=== PATIENT | male | born 1965 | race Caucasian/White ===

== ENCOUNTER 2016-11-26 10:33 | Emergency (ER) | payer OTHER ==
[~2016-11-26] VITALS: Wt 90.0 kg
[2016-11-26] MEDS ORDERED: DICLOFENAC SODIUM 37.5 MG/ML VIAL IV STA (11:15)
[2016-11-26] MEDS ORDERED: ONDANSETRON 4 MG INJ IV STA (11:15)
[2016-11-26 11:43] LABS: BASOPHIL # 0.1 10^3/ul (0.0-0.1); BASOPHILS % 2.7 % (0.0-2.0); EOSINOPHILS % 0.9 % (0.0-7.0); HEMATOCRIT 46.3 % (42.0-52.0); HEMOGLOBIN 15.8 g/dl (14.0-18.0); LYMPHOCYTES % 41.5 % (15.0-51.0); MEAN CORPUSCULAR HEMOGLOBIN 28.1 pg (29.0-33.0); MEAN CORPUSCULAR HGB CONC 34.1 g/dl (32.0-37.0); MEAN CORPUSCULAR VOLUME 82.4 fl (82.0-101.0); MEAN PLATELET VOLUME 10.5 fl (7.4-10.4); MONOCYTE # 0.4 10^3/ul (0.3-0.9); MONOCYTES % 7.9 % (0.0-11.0); NEUTROPHIL # 2.2 10^3/ul (1.6-7.5); PLATELET COUNT 210 10^3/UL (140-440); RED BLOOD COUNT 5.62 10^6/ul (4.70-6.10); RED CELL DISTRIBUTION WIDTH 12.9 % (11.5-14.5); UNCORRECTED WBC 4.7 10^3/ul (4.8-10.8); WHITE BLOOD COUNT 4.7 10^3/ul (4.8-10.8)
[2016-11-26 11:45] LABS: ADD UMIC YES; CONDITION 1; URINE BILIRUBIN (Dip) NEGATIVE (NEGATIVE); URINE BLOOD (Dip) TRACE (NEGATIVE); URINE COLOR LT. YELLOW (YELLOW); URINE GLUCOSE (Dip) NEGATIVE (NEGATIVE); URINE KETONES (Dip) NEGATIVE (NEGATIVE); URINE LEUKOCYTE ESTERASE (Dip) NEGATIVE (NEGATIVE); URINE NITRITE (Dip) NEGATIVE (NEGATIVE); URINE TOTAL PROTEIN (Dip) NEGATIVE (NEGATIVE); URINE UROBILINOGEN (Dip) 0.2 E.U./dL (0.1-1.0)
[2016-11-26 11:56] LABS: BACTERIA,URINE RARE; URINE RBCS 0-2 /HPF (0)
[2016-11-26 11:57] LABS: POTASSIUM 4.1 mmol/L (3.5-5.1)
[2016-11-26 11:59] LABS: ALBUMIN/GLOBULIN RATIO 1.21; CREATININE 1.12 mg/dl (0.61-1.24); TOTAL PROTEIN 9.1 g/dl (6.1-8.1)
[2016-11-26 12:00] LABS: CALCIUM 9.6 mg/dl (8.4-10.2)
--- NOTE | 2016-11-26 12:25 | RADRPT ---
PROCEDURE: CT Abdomen and Pelvis without contrast. CLINICAL INDICATION: Abdominal and pelvic pain. Right lower quadrant pain for 3 days. TECHNIQUE: CT scan of the abdomen and pelvis without contrast was performed. Coronal and sagittal reformatted images were obtained from the axial source images. Images were reviewed on a high-resolu [employer] PACS workstation. Total exam DLP is 1029.39 mGy-cm. CTDIvol is 17.58 mGy. One or more of the following dose reduction techniques were used: Automated exposure control, adjustment of the mA and/ or kV according to patient size, use of iterative reconstruction technique. COMPARISON: None. FINDINGS: The lung bases are normal. There is no pleural effusion. The liver is normal in size and diffusely decreased in attenuation. There is no focal hepatic lesio n. The gallbladder and bile ducts are normal. The spleen is normal in size. There is no focal splenic lesion. Both adrenals are normal with no enlargement or mass. The pancreas is unremarkable with no mass or evidence of pancreatitis. There is no renal mass or hydronephrosis. There is no renal calculus or ureteral calculus. The abdominal aorta is not dilated. There is calcification in the aorta consistent with atheroscler osis. There is no retroperitoneal lymphadenopathy or mass. There is no pelvic lymphadenopathy or mass. The bladder and distal ureters are normal. The periappendiceal region is unremarkable with no evidence of appendicitis. The appendix is well se en and appears normal. There is diverticulosis of the descending colon and sigmoid colon. There is no evidence of divertic ulitis. The bowel and mesentery are otherwise normal. There is no free fluid or free gas. There are mild degenerative changes of the spine. Bilateral pars defects are present at L4. There i s grade 1 anterolisthesis at L4-5. Alignment of the spine is otherwise normal. There is no other f racture or lytic lesion. IMPRESSION: 1. Fatty metamorphosis of the liver. 2. Atherosclerosis. 3. Normal appendix. 4. No urinary tract calculus or hydronephrosis. 5. Diverticulosis of the descending colon and sigmoid colon. No evidence of diverticulitis. 6. Mild degenerative changes of the spine. 7. Bilateral pars defects at L4. 8. Grade 1 anterolisthesis at L4-5. 9. Otherwise unremarkable study. RPTAT: QQ .Rafy Liu MD, MD Date Time Electronically viewed and signed by .Rafy Liu MD, on 11/26/2016 12:25 .R/
[2016-11-26] MEDS ORDERED: IBUP-1542 PO (12:29)
[2016-11-26] MEDS ORDERED: HYDR-902 PO (12:29)
[2016-11-26 12:55] VITALS: BP 141/102; PULSE 78; RESP 18; TEMP 97.7
--- NOTE | 2016-11-26 13:19 | ERD ---
ER Documentation Chief Complaint Date/Time DATE: 11/26/16 TIME: 13:17 Chief Complaint RLQ ABD PAIN, ONSET 2 DAYS, NO N/V/D, NO FEVER HPI Patient is a 51-year-old male with no medical problems who presents with abdominal pain. He has abdominal pain in the right lower quadrant for the past 2 days. The patient feels better today. The pain is been constant and worse with movement. The patient denies fevers. There is no vomiting or diarrhea. The patient has had no treatment as of yet. The patient does not currently have a primary doctor. Upon review of old medical records this is the patient' s first visit to the ER. ROS All systems reviewed and are negative except as per history of present illness. Medications Home Meds Active Scripts Hydrocodone/Acetaminophen (Loving 10-325 Tablet) 1 Each Tablet, 1 TAB PO Q6H Y for PAIN, #7 TAB Prov:PRADEEP PITT MD 11/26/16 Ibuprofen* (Motrin*) 600 Mg Tab, 600 MG PO Q6H Y for PAIN AND OR ELEVATED TEMP, #30 TAB Prov:PRADEEP PITT MD 11/26/16 Allergies Allergies: Coded Allergies: No Known Allergy (Unverified , 11/26/16) PMhx/Soc Medical and Surgical Hx: pt denies Medical Hx, pt denies Surgical Hx Hx Alcohol Use: No Hx Substance Use: No Hx Tobacco Use: No Smoking Status: Never smoker FmHx Family History: No diabetes Physical Exam Vitals Vital Signs Date Time Temp Pulse Resp B/P Pulse Ox O2 Delivery O2 Flow Rate FiO2 11/26/16 12:55 97.7 78 18 141/102 97 Room Air 11/26/16 10:46 97.7 94 18 171/107 97 Physical Exam Const: No acute distress Head: Atraumatic Eyes: Normal Conjunctiva ENT: Normal External Ears, Nose and Mouth. Neck: Full range of motion..~ No meningismus. Resp: Clear to auscultation bilaterally Cardio: Regular rate and rhythm, no murmurs Abd: Mild right lower quadrant tenderness to palpation without rebound or guarding Skin: No petechiae or rashes Back: No midline or flank tenderness Ext: No cyanosis, or edema Neur: Awake and alert Psych: Normal Mood and Affect Result Diagram: 11/26/16 1129 11/26/16 1129 Results 24 hrs Laboratory Tests Test 11/26/16 11:29 Alanine Aminotransferase (ALT/SGPT) 69IU/L Albumin 5.0g/dl Albumin/Globulin Ratio 1.21 Alkaline Phosphatase 93IU/L Anion Gap 22 Aspartate Amino Transf (AST/SGOT) 37IU/L Basophils # 0.110^3/ul Basophils % 2.7% Blood Morphology Comment Blood Urea Nitrogen 15mg/dl Calcium Level 9.6mg/dl Carbon Dioxide Level 27mmol/L Chloride Level 101mmol/L Creatinine 1.12mg/dl Direct Bilirubin 0.00mg/dl Eosinophils # 0.010^3/ul Eosinophils % 0.9% Globulin 4.10g/dl Glucose Level 137mg/dl Hematocrit 46.3% Hemoglobin 15.8g/dl Indirect Bilirubin 1.0mg/dl Lipase 115U/L Lymphocytes # 2.010^3/ul Lymphocytes % 41.5% Mean Corpuscular Hemoglobin 28.1pg Mean Corpuscular Hemoglobin Concent 34.1g/dl Mean Corpuscular Volume 82.4fl Mean Platelet Volume 10.5fl Monocytes # 0.410^3/ul Monocytes % 7.9% Neutrophils # 2.210^3/ul Neutrophils % 47.0% Nucleated Red Blood Cells # 0.010^3/ul Nucleated Red Blood Cells % 0.0/100WBC Platelet Count 41894^3/UL Potassium Level 4.1mmol/L Red Blood Count 5.6210^6/ul Red Cell Distribution Width 12.9% Sodium Level 146mmol/L Total Bilirubin 1.0mg/dl Total Protein 9.1g/dl Urine Bacteria RARE Urine Bilirubin NEGATIVE Urine Clarity CLEAR Urine Color LT. YELLOW Urine Epithelial Cells RARE Urine Glucose NEGATIVE% Urine Hemoglobin TRACE Urine Ketones NEGATIVE Urine Leukocyte Esterase NEGATIVE Urine Microscopic RBC 0-2/HPF Urine Microscopic WBC 0-2/HPF Urine Nitrite NEGATIVE Urine Specific Hassell 1.025 Urine Total Protein NEGATIVE Urine Urobilinogen 0.2 E.U./dL Urine pH 5.5 White Blood Count 4.710^3/ul Current Medications Medications (Trade) Dose Ordered Sig/Gracie Route PRN Reason Start Time Stop Time Status Last Admin Dose Admin Ondansetron HCl (Zofran Inj) 4 mg ONCE STAT IV 11/26/16 11:15 11/26/16 11:17 DC 11/26/16 11:28 Diclofenac Sodium (Dyloject) 37.5 mg ONCE STAT IV 11/26/16 11:15 11/26/16 11:17 DC 11/26/16 11:28 Procedures/MDM CT negative per radiology. Patient is a 51-year-old male presents with right lower quadrant abdominal pain. Laboratory studies were basically normal other than mild leukopenia and mild hyper natremia. CT scan was negative. LFTs and lipase were normal and I doubt cholecystitis, pancreatitis, appendicitis, or bowel obstruction. The patient will need to follow-up with a primary doctor tomorrow morning and I provided information for the local clinics. The patient can return for any worsening symptoms. The patient will be given a prescription for ibuprofen and Loving. Departure Diagnosis: Primary Impression: Abdominal pain Abdominal location: right lower quadrant Qualified Code: R10.31 - Right lower quadrant abdominal pain Condition: Fair Patient Instructions: Abdominal Pain Ref[facility]: [facility] Usted se poon hecho un examen mdico de control que le indica que no est en ace condicin que requiera tratamiento urgente en el Departamento de Emergencia. Un estudio ms profundo y el tratamiento de randolph condicin pueden esperar sin ningn riesgo hasta que usted sea atendida/o en el consultorio de randolph mdico o ace cl bacilio. Es responsabilidad suya arreglar ace laura para el seguimiento del lilo. MANEJO DE CONDICIONES NO URGENTES EN EL FUTURO 1) Si usted tiene un mdico de atencin primaria: Usted debera llamar a randolph mdico de atencin primaria antes de venir al departamento de emergencia. Despus de las horas de consultorio, randolph doctor o randolph asociado/a est disponible por telfono. El mdico o enfermero de lizeth en el servicio telefnico puede asesorarle por dali medio para atender el problema, o lilo contrario se puede programar ace laura. 2) Si usted no tiene un mdico de atencin primaria: Llame al mdico o clnica de referencia que aparece abajo catrachito las horas de consultorio para hacer ace laura para que le vean. CLINICAS: [facility] [phone] [facility] [phone] [facility] [phone] [place] [phone] [place] [address] [phone] [facility]. [phone] [address] Additional Instructions: Visite a randolph ico maana para un EXAMEN.Regrese a estas instalaciones si no se mejora lorenzo esperbamos o lorenzo le dijimos. PRADEEP PITT MD Nov 26, 2016 13:19
== END 2016-11-26 12:56 | disposition home or self-care (01) ==
LOC: E/R 10:33
DX: R10.31 Right lower quadrant pain (principal)
CPT/HCPCS: 36415; 74176; 80053; 81001; 83690; 85025; 96374; 96375; J2405; Z7502; Z7610; 81003

== ENCOUNTER 2017-10-06 | Emergency (ER) | payer OTHER ==
[~2017-10-06] VITALS: Ht 170.2 cm; Wt 94.0 kg
[~2017-10-06] MED LIST: HYDR-902 PO; IBUP-1542 PO
[2017-10-06 00:11] VITALS: Ht 170.2 cm; Wt 94.0 kg
[2017-10-06] MEDS ORDERED: HYDROCODONE/APAP (10/325) TAB PO ONE (01:30)
--- NOTE | 2017-10-06 01:30 | ERD ---
ER Documentation Chief Complaint Chief Complaint left foot pain/swelling x 2 weeks. denies injury HPI 52-year-old male presents emergency department for left foot/swelling/pain for 2 weeks. Denies headache, dizziness, blurry vision, neck pain, shoulder pain, chest pain , back pain, difficulty breathing when lying flat, cough, loss of appetite, abdominal pain, nausea, vomiting, constipation, diarrhea, loss of bowel bladder control, changes in bowel and bladder habits, trauma, injury, falls, numbness or tingling sensation, fever, chills. No known drug allergies. No past medical history. No surgeries. Does not take any prescription medication at home. Social: Not working this time. Denies smoking, use of alcoholic beverages, use of illegal drugs. ROS All systems reviewed and are negative except as per history of present illness. Medications Home Meds Active Scripts Hydrocodone/Acetaminophen (Edgerton 5-325 Tablet) 1 Each Tablet, 1 EACH PO Q6 Y for PAIN, #10 TAB Prov:ALYSSAILABANMILLIAR F 10/06/17 Naproxen* (Naprosyn*) 500 Mg Tablet, 500 MG PO BID Y for PAIN AND/OR INFLAMMATION, #30 TAB Prov:ALYSSAILABANMILLIAR F 10/06/17 Hydrocodone/Acetaminophen (Edgerton 10-325 Tablet) 1 Each Tablet, 1 TAB PO Q6H Y for PAIN, #7 TAB Prov:PRADEEP PITT MD 11/26/16 Ibuprofen* (Motrin*) 600 Mg Tab, 600 MG PO Q6H Y for PAIN AND OR ELEVATED TEMP, #30 TAB Prov:PRADEEP PITT MD 11/26/16 Allergies Allergies: Coded Allergies: No Known Allergy (Unverified , 10/06/17) PMhx/Soc Medical and Surgical Hx: pt denies Medical Hx, pt denies Surgical Hx Hx Alcohol Use: No Hx Substance Use: No Hx Tobacco Use: No Smoking Status: Never smoker Physical Exam Vitals Vital Signs Date Time Temp Pulse Resp B/P Pulse Ox O2 Delivery O2 Flow Rate FiO2 10/06/17 00:11 98.5 83 20 180/95 99 Physical Exam Const: [] Head: Atraumatic Eyes: Normal Conjunctiva ENT: Normal External Ears, Nose and Mouth. Neck: Full range of motion..~ No meningismus. Resp: Clear to auscultation bilaterally Cardio: Regular rate and rhythm, no murmurs Abd: Soft, non tender, non distended. Normal bowel sounds Skin: No petechiae or rashes Back: No midline or flank tenderness Ext: No cyanosis. Right lower extremities unremarkable. Left ankle swelling with no obvious deformity. Left foot is swelling with no obvious deformity. Left pedal pulse is unremarkable. Left distal tibia and fibular area swelling and tenderness. Neur: Awake and alert Psych: Normal Mood and Affect Result Diagram: 10/06/17 02110/06/17 0210 Results 24 hrs Laboratory Tests Test 10/06/17 02:10 White Blood Count 7.210^3/ul Red Blood Count 5.5410^6/ul Hemoglobin 15.2g/dl Hematocrit 44.8% Mean Corpuscular Volume 80.9fl Mean Corpuscular Hemoglobin 27.4pg Mean Corpuscular Hemoglobin Concent 33.9g/dl Red Cell Distribution Width 12.3% Platelet Count 35388^3/UL Mean Platelet Volume 11.8fl Neutrophils % 43.1% Lymphocytes % 46.7% Monocytes % 7.5% Eosinophils % 1.7% Basophils % 0.6% Nucleated Red Blood Cells % 0.0/100WBC Neutrophils # 3.110^3/ul Lymphocytes # 3.410^3/ul Monocytes # 0.510^3/ul Eosinophils # 0.110^3/ul Basophils # 0.010^3/ul Nucleated Red Blood Cells # 0.010^3/ul Erythrocyte Sedimentation Rate 10mm/Hr Prothrombin Time 12.0Sec Prothrombin Time Ratio 0.9 INR International Normalized Ratio 0.89 Activated Partial Thromboplast Time 24.4Sec Sodium Level 141mmol/L Potassium Level 3.9mmol/L Chloride Level 102mmol/L Carbon Dioxide Level 27mmol/L Anion Gap 16 Blood Urea Nitrogen 17mg/dl Creatinine 1.05mg/dl Glucose Level 165mg/dl Uric Acid 7.3mg/dl Calcium Level 10.2mg/dl Total Bilirubin 0.4mg/dl Direct Bilirubin 0.00mg/dl Indirect Bilirubin 0.4mg/dl Aspartate Amino Transf (AST/SGOT) 38IU/L Alanine Aminotransferase (ALT/SGPT) 73IU/L Alkaline Phosphatase 112IU/L C-Reactive Protein 1.6mg/dl Total Protein 8.5g/dl Albumin 4.5g/dl Globulin 4.00g/dl Albumin/Globulin Ratio 1.12 Current Medications Medications (Trade) Dose Ordered Sig/Gracie Route PRN Reason Start Time Stop Time Status Last Admin Dose Admin Acetaminophen/ Hydrocodone Bitart (Edgerton ()) 1 tab ONCE ONCE PO 10/06/17 01:30 10/06/17 01:31 DC 10/06/17 01:45 Procedures/MDM 52-year-old male presents emergency department for left foot/swelling/pain for 2 weeks. Denies headache, dizziness, blurry vision, neck pain, shoulder pain, chest pain , back pain, difficulty breathing when lying flat, cough, loss of appetite, abdominal pain, nausea, vomiting, constipation, diarrhea, loss of bowel bladder control, changes in bowel and bladder habits, trauma, injury, falls, numbness or tingling sensation, fever, chills. No known drug allergies. No past medical history. No surgeries. Does not take any prescription medication at home. Social: Not working this time. Denies smoking, use of alcoholic beverages, use of illegal drugs. Physical exam: Right lower extremities unremarkable. Left ankle swelling with no obvious deformity. Left foot is swelling with no obvious deformity. Left pedal pulse is unremarkable. Left distal tibia and fibular area swelling and tenderness. Disease process was explained to the patient. He verbalized understanding and agreed with the diagnostic test, treatment, plan of care, follow-up care. Venous Doppler ultrasound of the left lower extremity: No sonographic evidence for left deep vein thrombosis. X-ray of the left foot: Mild soft tissue swelling. No acute osseous abnormality. X-ray of the left ankle: Soft tissue swelling. No acute osseous abnormality. Blood works: Reviewed. Treatment: Edgerton. Application of Bryn wrap to left ankle. Reevaluation: Denies headache, dizziness, blurred vision, neck pain, shoulder pain, chest, back pain, abdominal pain. Denies ankle pain. No neurovascular deficits prior to and after the application of Bryn wrap. Differential diagnosis: DVT versus dependent edema versus fracture versus contusion versus sprain versus cellulitis Final diagnosis: Arthritis. Left ankle pain. Prescription: Naprosyn. Edgerton. Follow-up with PCP the next 24-48 hours. Come back here in the emergency department for any new symptoms or any worsening of symptoms. All questions and concerns are answered. Patient verbalized understanding and agreed with the plan of care. Hemodynamically stable on discharge. Departure Diagnosis: Primary Impression: Foot pain Additional Impressions: Ankle pain Arthritis Condition: Stable Additional Instructions: Follow-up with PCP the next 24-48 hours. Come back here in the emergency department for any new symptoms or any worsening of symptoms. All questions and concerns are answered. Patient verbalized understanding and agreed with the plan of care. CARMEN CONTRERAS Oct 06, 2017 01:30
[2017-10-06 02:27] LABS: BASOPHILS % 0.6 % (0.0-2.0); EOSINOPHILS # 0.1 10^3/ul (0.0-0.5); EOSINOPHILS % 1.7 % (0.0-7.0); HEMATOCRIT 44.8 % (42.0-52.0); HEMOGLOBIN 15.2 g/dl (14.0-18.0); LYMPHOCYTES # 3.4 10^3/ul (0.8-2.9); LYMPHOCYTES % 46.7 % (15.0-51.0); MEAN CORPUSCULAR HEMOGLOBIN 27.4 pg (29.0-33.0); MEAN CORPUSCULAR HGB CONC 33.9 g/dl (32.0-37.0); MEAN CORPUSCULAR VOLUME 80.9 fl (82.0-101.0); MEAN PLATELET VOLUME 11.8 fl (7.4-10.4); MONOCYTE # 0.5 10^3/ul (0.3-0.9); MONOCYTES % 7.5 % (0.0-11.0); NEUTROPHIL # 3.1 10^3/ul (1.6-7.5); NEUTROPHILS % 43.1 % (39.0-77.0); PLATELET COUNT 189 10^3/UL (140-415); POSITIVE DIFF @See below; RED BLOOD COUNT 5.54 10^6/ul (4.70-6.10); RED CELL DISTRIBUTION WIDTH 12.3 % (11.5-14.5); WHITE BLOOD COUNT 7.2 10^3/ul (4.8-10.8)
--- NOTE | 2017-10-06 02:52 | RADRPT ---
PROCEDURE: XR Left Ankle. CLINICAL INDICATION: Generalized pain TECHNIQUE: AP, oblique and lateral views of the left ankle were performed. COMPARISON: None. FINDINGS: There is normal mineralization and alignment. No acute fracture or osseous lesion is identified. The joints are normal. Diffuse soft tissue swelling is noted, greater laterally. IMPRESSION: Soft tissue swelling. No acute osseous abnormality. Physician Elsi Date Time Electronically viewed and signed by Physician Elsi on 10/06/2017 02:51 /
--- NOTE | 2017-10-06 02:53 | RADRPT ---
PROCEDURE: XR Left Foot. CLINICAL INDICATION: swelling/pain TECHNIQUE: AP, lateral and oblique views of the left foot was obtained. The images were reviewed on a PACS workstation. COMPARISON: None. FINDINGS: The bones of the foot appear intact, with no evidence of fracture, dislocation, or subluxation. The joint spaces are preserved. The bone mineralization is normal. Mild medial soft tissue swelling is seen. IMPRESSION: Mild soft tissue swelling. No acute osseous abnormality. Physician Elsi Date Time Electronically viewed and signed by Physician Elsi on 10/06/2017 02:53 /
[2017-10-06 02:58] LABS: ALBUMIN 4.5 g/dl (3.3-4.9); ALBUMIN/GLOBULIN RATIO 1.12; BILIRUBIN,INDIRECT 0.4 mg/dl (0-1.1); BILIRUBIN,TOTAL 0.4 mg/dl (0.2-1.3); CALCIUM 10.2 mg/dl (8.4-10.2); CREATININE 1.05 mg/dl (0.61-1.24); POTASSIUM 3.9 mmol/L (3.5-5.1); TOTAL PROTEIN 8.5 g/dl (6.1-8.1)
[2017-10-06 03:06] LABS: INR 0.89; PT RATIO 0.9
[2017-10-06 03:07] LABS: PARTIAL THROMBOPLASTIN TIME 24.4 Sec (25.0-35.0)
--- NOTE | 2017-10-06 03:32 | RADRPT ---
PROCEDURE: US left lower extremity venous Doppler CLINICAL INDICATION: Swelling TECHNIQUE: Multiple sonographic images of the left lower extremity deep venous system was obtained utilizing grayscale, color-flow, compressive sonography and Doppler imaging with augmentation. COMPARISON: No pertinent prior examinations were submitted for comparison. FINDINGS: There is normal compressibility and flow within the left common femoral, superficial femoral, poplit eal, and calf veins. IMPRESSION: No sonographic evidence for left deep venous thrombosis. RPTAT: HIKT .Luis Hilton MD, MD Date Time Electronically viewed and signed by .Luis Hilton MD, on 10/06/2017 03:31 .T/
[2017-10-06 04:44] LABS: C-REACTIVE PROTEIN 1.6 mg/dl (0.0-0.9)
[2017-10-06] MEDS ORDERED: NAPR-260 PO (05:01)
[2017-10-06] MEDS ORDERED: HYDR-906 PO (05:02)
== END 2017-10-06 05:14 | disposition home or self-care (01) ==
LOC: FTE
DX: M79.672 Pain in left foot (principal); M17.9 Osteoarthritis of knee, unspecified; M25.572 Pain in left ankle and joints of left foot
CPT/HCPCS: 73610; 73630; 80053; 84560; 85025; 85610; 85651; 85730; 86140; 93971; Z7502; Z7610